=== PATIENT | female | born 1955 | race Two or more races ===

== ENCOUNTER 2019-05-15 18:32 | Emergency (ER) | payer BC, OTHER ==
[~2019-05-15] VITALS: Ht 160 cm; Wt 99.8 kg
[2019-05-15 19:22] LABS: Basophils # (auto) 0 uL; Basophils % (auto) 0.5 % (0.0-2.0); Eosinophils # (auto) 0 uL; Eosinophils % (auto) 0.4 % (0.0-7.0); Hemoglobin 16.7 g/dL (12.2-16.2); Lymphocytes # (auto) 1.6 uL; Lymphocytes % (auto) 23.8 % (10.0-50.0); Mean Corpuscular Hemoglobin 32.4 pg (28.0-32.0); Mean Corpuscular Hgb Conc. 33.4 g/dL (32.0-36.0); Mean Corpuscular Volume 97.1 fL (80.0-100.0); Monocytes # (auto) 0.4 uL; Monocytes % (auto) 6.7 % (0.0-12.0); Neutrophils # (auto) 4.5 uL; Neutrophils % (auto) 68.6 % (37.0-80.0); Nucleated Red Blood Cells % 0.1 %; Platelet Count (auto) 231 10^3/uL (140-450); Red Blood Cells 5.15 10^6/uL (4.0-5.20); Red Cell Distribution Width 15.7 % (11.8-14.3); White Blood Cell 6.6 10^3/uL (4.4-10.8)
[2019-05-15 19:39] LABS: Albumin 3.8 g/dL (3.4-5.0); Anion Gap 5 (5-15); Blood Urea Nitrogen 21 mg/dL (7-18); Calcium 8.4 mg/dL (8.5-10.1); Carbon Dioxide 29 mmol/L (21-32); Chloride 109 mmol/L (98-107); Glucose 161 mg/dL (74-106); Potassium 4.4 mmol/L (3.5-5.1); Sodium 143 mmol/L (136-145)
[2019-05-15 19:45] LABS: Alanine Aminotransferase 36 U/L (13-56); Alkaline Phosphatase 100 U/L (45-117); Aspartate Aminotransferase 30 U/L (15-37); BUN/Creatinine Ratio 18.9; Bilirubin, Total 0.5 mg/dL (0.2-1.0); GFR African American 64 mL/min; GFR Non-African American 53 mL/min; Total Protein 7.1 g/dL (6.4-8.2)
[2019-05-15 22:54] LABS: Urine Bacteria NONE SEEN /hpf (None Seen); Urine Blood 1+ /uL (Negative); Urine Mucus FEW (None Seen); Urine Specific Gravity 1.028 (1.001-1.035); Urine WBC 13 /hpf (0 - 5)
[2019-05-16] MEDS ORDERED: IPRATROPIUM BROM 0.5 MG/2.5ML INH SOL NEB ONE (05:30)
[2019-05-16] MEDS ORDERED: ALBUTEROL SULF 2.5 MG/0.5ML(0.5%) NEB SOLN NEB ONE (05:30)
[2019-05-16] MEDS ORDERED: FUROSEMIDE 20 MG/2 ML VIAL IV ONE (05:45)
[2019-05-16 06:31] VITALS: BP 145/88
== END 2019-05-16 07:01 | disposition home or self-care (01) ==
LOC: ER 18:35
DX: J44.1 Chronic obstructive pulmonary disease with (acute) exacerbation (principal); H10.9 Unspecified conjunctivitis; R07.89 Other chest pain; I50.9 Heart failure, unspecified; E07.9 Disorder of thyroid, unspecified
CPT/HCPCS: 36415; 71046; 80053; 81001; 83880; 84484; 85025; 93005; 94640; 96374; 99284; J1940; J7611; J7644

== ENCOUNTER 2020-03-27 22:22 | Inpatient (IN) | payer BC, OTHER ==
[~2020-03-27] VITALS: Ht 154.9 cm; Wt 84.6 kg
[2020-03-27 23:49] LABS: Hematocrit 44.4 % (36.0-46.0); Hemoglobin 14.8 g/dL (12.2-16.2); Mean Corpuscular Hemoglobin 34.4 pg (28.0-32.0); Mean Corpuscular Hgb Conc. 33.4 g/dL (32.0-36.0); Platelet Count (auto) 70 10^3/uL (140-450); Red Blood Cells 4.31 10^6/uL (4.0-5.20); Red Cell Distribution Width 16.3 % (11.8-14.3)
[2020-03-27 23:55] LABS: Basophils % (manual) 0 (0.0-2.0); Blast Cells 0; Eosinophils % (manual) 0 (0-7); Promyelocytes % 0; Reactive Lymphocytes 0
[2020-03-28] VITALS (58 sets, daily range): BP systolic 62–112; BP diastolic 27–72
[2020-03-28] MEDS ORDERED: ONDANSETRON HCL 4 MG/2 ML VIAL IV ONE
[2020-03-28] MEDS ORDERED: MORPHINE SULFATE 4 MG/ML SYR/VIAL IV ONE
[2020-03-28 00:03] LABS: Albumin 2.2 g/dL (3.4-5.0); Anion Gap 14 (5-15); Blood Urea Nitrogen 44 mg/dL (7-18); Calcium 8.8 mg/dL (8.5-10.1); Carbon Dioxide 18 mmol/L (21-32); Chloride 107 mmol/L (98-107); GFR African American 39 mL/min; GFR Non-African American 32 mL/min; Glucose 71 mg/dL (74-106); Sodium 139 mmol/L (136-145)
[2020-03-28 00:06] LABS: Potassium 2.9 mmol/L (3.5-5.1)
[2020-03-28 00:15] LABS: Alanine Aminotransferase 16 U/L (13-56); Alkaline Phosphatase 158 U/L (45-117); Aspartate Aminotransferase 22 U/L (15-37); Bilirubin, Total 2.6 mg/dL (0.2-1.0); Total Protein 5.9 g/dL (6.4-8.2)
[2020-03-28 00:30] LABS: INR 1.24 (0.9-1.15); Partial Thromboplastin Time 42.9 sec (23.0-31.2)
[2020-03-28 00:45] LABS: Band Neutrophils % (manual) 54; Lymphocytes % (manual) 7 (10.0-50.0); Metamyelocytes % 3; Monocytes % (manual) 2 (0-12); Myelocytes % 2
[2020-03-28] MEDS ORDERED: POTASSIUM CHL 20MEQ/100ML 100 ML IV ONE ×2 (00:45→06:45)
[2020-03-28 01:58] LABS: Lactic Acid w/Reflex 4.3 mmol/L (0.4-2.0)
[2020-03-28] MEDS ORDERED: HYDROmorphone HCL 2 MG/ML VL IV ONE (02:30)
[2020-03-28] MEDS ORDERED: PIPERACILLIN-TAZOB 3.375GM 100 ML IV ONE (03:00)
[2020-03-28] MEDS ORDERED: VANCOMYCIN 1GM/250ML 250 ML IV ONE (03:00)
[2020-03-28 06:06] LABS: Urine Bacteria MANY /hpf (None Seen); Urine Blood 2+ /uL (Negative); Urine Specific Gravity 1.025 (1.001-1.035); Urine WBC 14 /hpf (0 - 5)
[2020-03-28] MEDS ORDERED: ALBUMIN 25% 100 ML IV ONE (06:45)
[2020-03-28] MEDS ORDERED: MORPHINE SULF INJ 2 MG/ML SYRINGE 1ML IV PRN (06:45)
[2020-03-28] MEDS ORDERED: VANCOMYCIN PER PHARMACY 0 MG IV SCH ×2 (06:45→08:15)
[2020-03-28] MEDS ORDERED: SOD CHL 0.45% 1,000 ML IV ONE (06:45)
[2020-03-28] MEDS ORDERED: NITROGLYCERIN 0.4 MG SL TAB SL PRN (06:45)
[2020-03-28 07:56] LABS: Red Blood Cells 4.49 10^6/uL (4.0-5.20)
[2020-03-28 07:58] LABS: Hematocrit 46.5 % (36.0-46.0); Hemoglobin 15.2 g/dL (12.2-16.2); Mean Corpuscular Hemoglobin 33.8 pg (28.0-32.0); Mean Corpuscular Hgb Conc. 32.7 g/dL (32.0-36.0); Mean Corpuscular Volume 103.6 fL (80.0-100.0); Platelet Count (auto) 42 10^3/uL (140-450); Red Cell Distribution Width 16.4 % (11.8-14.3); White Blood Cell 4.5 10^3/uL (4.4-10.8)
[2020-03-28 08:12] LABS: Albumin 2.1 g/dL (3.4-5.0); Calcium 8.4 mg/dL (8.5-10.1); Potassium 3.2 mmol/L (3.5-5.1)
[2020-03-28 08:17] LABS: BUN/Creatinine Ratio 26.9; Bilirubin, Total 3.3 mg/dL (0.2-1.0); Total Protein 5.8 g/dL (6.4-8.2)
[2020-03-28 08:29] LABS: Basophils % (manual) 0 (0.0-2.0); Blast Cells 0; Eosinophils % (manual) 0 (0-7); Myelocytes % 0; Promyelocytes % 0
[2020-03-28] MEDS ORDERED: MIDAZOLAM HCL 5 MG/ML-1ML VIAL IV ONE (08:30)
[2020-03-28] MEDS ORDERED: MIDAZOLAM DRIP 50 mg/50mL 50 ML IV ONE (08:41)
[2020-03-28] MEDS: MIDAZOLAM DRIP 50 mg/50mL 50 ML IV SCH (08:50)
--- NOTE | 2020-03-28 08:53 | NUR ---
INTUBATION PT INTUBATED BY DR. GUNDERSON WITH ETT 7.5 AT 22CM LIP, SECURED WITH HOLISTER. POSITIVE COLOR CHANGE ON COLORMETRIC CO2 DETECTOR. BILATERAL BREATH SOUNDS CLEAR/DIM T/O. PLACED PT ON ESPRIT VENT V14 PLUGGED INTO RED OUTLET, ON SETTINGS: AC, RR 14, VT 450, PEEP +5, FIO2 40%. SUCTIONED FOR MODERATE THICK WRIGHT SECRETIONS, SPUTUM SAMPLE OBTAINED AND SENT TO LAB. ALARMS SET AND AUDIBLE. PT SEDATED, TOLERATING VENT WELL. RN AT BEDSIDE, AWARE OF PT'S BLOOD PRESSURE. ABG TO FOLLOW. WILL CONT TO MONITOR.
[2020-03-28 08:59] LABS: Band Neutrophils % (manual) 17; Lymphocytes % (manual) 5 (10.0-50.0); Metamyelocytes % 4; Monocytes % (manual) 4 (0-12); Reactive Lymphocytes 1
[2020-03-28] MEDS: NOREPINEPHRINE 8 MG/250ML KIT 250 ML IV SCH ×4 (09:00→22:14)
[2020-03-28] MEDS ORDERED: SODIUM CHLORIDE 0.9% 1,000 ML IV ONE ×2 (09:45)
--- NOTE | 2020-03-28 09:58 | NUR ---
Got a report from ER.
[2020-03-28] MEDS: FUROSEMIDE 20 MG/2 ML VIAL IV SCH ×2 (10:00→17:47)
[2020-03-28] MEDS: PHENYLEPHRINE IV 250 ML IV SCH ×6 (10:00→22:16)
[2020-03-28 10:15] LABS: INR 1.34 (0.9-1.15)
--- NOTE | 2020-03-28 10:30 | NUR ---
WOUND CARE NOTE: IN TO SEE PATIENT AT THIS TIME PER WOUND CARE CONSULT REQUEST. PATIENT RECENTLY ADMITTED TO [facility] WITH DIAGNOSIS OF SEPSIS, BLE STASIS ULCERS/BLISTERS. CURRENT ZEHRA SCORE IS 10. PATIENT IS INTUBATED, SEDATED. SHE COVID 19 TESTS PENDING AT THIS TIME, IN COVID ROOM. PATIENT WAS ADMITTED WITH MULTIPLE WOUNDS. ALL SKIN INTEGRITY ISSUES PHOTOGRAPHED AT THIS TIME FOR REFERENCE. SHE IS NTOED TO HAVE VENOUS STASIS ULCERS, OPEN BLISTERS, ERYTHEMA, ECCHYMOSIS NOTED TO BLE. RIGHT ABDOMEN TO KNEE IS PURPLE WITH ECCHYMOSIS. SKIN INTACT TO THIS AREA. THER IS 2 + PITTING EDEMA NOTED TO BLE. SACRUM IS VERY DARK BROWN/PURPLE. THIS COULD BE HYPERPIGMENTED SKIN VS. INTACT PURPLE DTI. APPLIED OPTIFOAM GENTLE SACRAL DRESSING TO THE SACRUM. ALL WOUND STATS CAN BE FOUND WITHIN WOUND ASSESSMENT INTERVENTION, LINKED TO THIS NOTE. THERAHONEY AND OPTIFOAM GENTLE DRESSINGS APPLIED TO ALL OPEN WOUNDS ON RIGHT LEG, RECOMMEND: FREQUENT TURN SCHEDULE Q 2 HOURS, PRN CONDITION PERMITS, WITH PRESSURE REDISTRIBUTION USING PILLOWS/WEDGES, ICU LOW AIRLOSS BED, BID/PRN APPLICATION WITH MOISTURE BARRIER CREAM, OPTIFOAM GENTLE SACRAL DRESSING, EOD/PRN DRESSINGS TO OPEN WOUNDS ON RIGHT LOWER EXTREMITY, DIETARY CONSULT, SKIN/WOUND CARE PLAN, CONTINUED MONITORING BY WOUND CARE TEAM. Addendum: 03/28/20 at 1455 by Vivi Call RN Amended: Links added.
--- NOTE | 2020-03-28 10:35 | NUR ---
Admit to ICU from ER on vent MONSE FRANKLIN admitted to ICU via gurney on residential monitor, intubated and being bagged by Respiratory Therapist. Patient transferred to bed, connected to mechanical ventilator by therapist, CADENM at bedside. Patient connected to ICU monitoring, weighed by bedscale, oriented to REZA LEGER RN primary RN, unit, ventilator and sedation. Wound care nurse at the bedside as well for skin assessment and pictures were taken by Wound care nurse. BP 80/50 mmHg with Max of Levophed and Dmitriy at 40 mcg/min, on Versed for sedation.
--- NOTE | 2020-03-28 10:35 | NUR ---
RT Transport Note: Patient transported to ICU 103 with RN. Patient transported on cardiac rehabilitation specialist with alarms set and audible, ambu-bag/mask connected to O2 tank. Patient placed back on ventilator with previous settings. Transport completed without incident.
[2020-03-28 10:44] LABS: Protein, Urine 220.2 mg/dL (0.0-11.9)
--- NOTE | 2020-03-28 11:01 | NUR ---
Received a call from Dr. Tracy regarding new consult, MD will see patient tomorrow.
[2020-03-28] MEDS ORDERED: VASOPRESSIN 50 UNITS in D5W 5% 247.5 ML IV SCH ×2 (11:45→12:00)
[2020-03-28] MEDS ORDERED: SODIUM CHLORIDE 0.9% 2,000 ML IV ONE (11:45)
[2020-03-28] MEDS: EPINEPHrine HCL 250 ML IV SCH (11:45)
[2020-03-28] MEDS ORDERED: VASOPRESSIN 20 UNIT/ML ONE (11:47)
--- NOTE | 2020-03-28 12:00 | NUR ---
Dr. Mir at the bedside.
[2020-03-28] MEDS: VASOPRESSIN 50 UNITS in D5W 5% 247.5 ML IV SCH (12:06)
--- NOTE | 2020-03-28 13:04 | NUR ---
Received a call from Dr. Kemi MD spoke to her regarding her condition, her will thinking about code status and will call us to let us know. Reported ABG to Dr. Mcmullen, received order for NaHO3 50 mEq iv push for 1 dose. Will carry out.
[2020-03-28] MEDS ORDERED: SODIUM BICARBONATE 8.4 % INJ 50ML VIAL IV ONE ×2 (13:15→17:15)
[2020-03-28] MEDS: PIPERACILLIN-TAZOB 2.25GM 50 ML IV SCH ×2 (13:21→22:16)
--- NOTE | 2020-03-28 13:54 | NUR ---
Received a call from her sister ([phone]), password given, updated patient's condition. Tried to call her as well. Left the message at this time.
--- NOTE | 2020-03-28 14:10 | NUR ---
Received a call from her , password provided, per her condition, her families were allow to see her in ICU today, her will sign the consent when he arrived.
--- NOTE | 2020-03-28 14:50 | NUR ---
Received a call from her mother. Password provided, updated condition.
--- NOTE | 2020-03-28 15:03 | NUR ---
Ultrasound atthe bedside, patient more awake, moving her both hands. Increased Versed at this time.
--- NOTE | 2020-03-28 15:45 | NUR ---
Called and informed Dr. Mcmullen regarding updating code status. made aware that her at the bedside and already signed for DNR.
--- NOTE | 2020-03-28 17:02 | NUR ---
Dr. Kang at the bedside, received new orders, MD discussed with Dr. Mcmullen on the phone. Will carry out.
[2020-03-28] MEDS ORDERED: SODIUM BICARBONATE 50ML VIAL 150 ML in SOD CHL 0.45% 1,000 ML IV SCH (17:15)
--- NOTE | 2020-03-28 19:00 | NUR ---
Opening shift note: Primary RN received report on patient. Patient currently intubated ETT 7.5/ 22CM @ LL, VENT settings: Assisted control. Bilateral lung sounds clear and diminished. Midline right upper arm. NGT to Right Nare clamped, placement verified. Rao catheter draining via gravity with yellow urine. Temp rectal probe in place. Safety precautions in place. Will continue to monitor. Patient on isolation for COVID-19 Rule Out.
--- NOTE | 2020-03-28 21:00 | NUR ---
SEDATION VACATION NOT APPROPRIATE FOR PATIENT AT THIS TIME, PATIENT IS CURRENTLY UNSTABLE. Addendum: 03/28/20 at 2242 by JEFRY CINTRON RN RN Amended: Links added.
--- NOTE | 2020-03-28 22:00 | NUR ---
Cooling measures: RN initiated cooling measures with removing blankets and placing ice packs on patient due to elevated temp of 100.4. RN will continue to monitor and assess.
--- NOTE | 2020-03-28 22:30 | NUR ---
Family: RN received call from family. Password verified. Family updated on patient condition and plan of care. All questions and concerned addressed.
--- NOTE | 2020-03-28 23:18 | NUR ---
Primary attending paged: RN paged primary attending and Dr. De Luna was covering. MD made aware of patient's code status but patient has begun to breath over the vent and appears to be in pain. New orders received and verified.
[2020-03-28] MEDS ORDERED: fentaNYL Drip 2500mCg/250mlNS 250 ML IV SCH (23:30)
[2020-03-29] VITALS (33 sets, daily range): BP systolic 78–104; BP diastolic 49–67
[2020-03-29] MEDS: PHENYLEPHRINE IV 250 ML IV SCH ×7 (00:11→12:31)
--- NOTE | 2020-03-29 01:00 | NUR ---
Family: Family member called. Patient's mother called and was updated on patient condition and POC. Mother was crying and states she wants patient to "go in peace, she has suffered so much already".
--- NOTE | 2020-03-29 01:11 | NUR ---
COVID RESULTS: RN received call from lab regarding patient's COVID 19 results being negative. experimental rocketsled mechanic made aware.
[2020-03-29] MEDS: VASOPRESSIN 50 UNITS in D5W 5% 247.5 ML IV SCH ×2 (01:14→10:51)
--- NOTE | 2020-03-29 01:44 | NUR ---
Cooling blanket: RN initiated cooling blanket d/t elevated temp with first set of cooling measures ineffective. RN will continue to monitor and assess patient.
--- NOTE | 2020-03-29 01:45 | NUR ---
Temp: Oral temp reads 99.0, rectal temp reads 102.0. RN continues to provide cooling measures with cooling blanket. RN will continue to monitor and assess patient's temp.
[2020-03-29] MEDS: MIDAZOLAM DRIP 50 mg/50mL 50 ML IV SCH ×3 (01:59→11:03)
[2020-03-29] MEDS: NOREPINEPHRINE 8 MG/250ML KIT 250 ML IV SCH ×2 (02:00→12:29)
--- NOTE | 2020-03-29 03:25 | NUR ---
Rectal temp: Patient's rectal temp began to fluctuate and read 98.7 throughout 102.1 consistently. RN attempted to reposition probe and unplug it and plug it back in. Probe continued with the same issue. RN took patient oral temp three times and received consecutive readings of 98.6 orally. RN assessed patient and noted patient to be cool to touch throughout. Cooling blanket turned off at this time. RN will continue to monitor and assess patient's temp.
--- NOTE | 2020-03-29 04:00 | NUR ---
Rectal probe: New rectal probe inserted for temp management. Temp now reading 101.2. Cooling measures restarted. RN will continue to monitor and asses.
[2020-03-29 04:11] LABS: Red Cell Distribution Width 16.9 % (11.8-14.3)
[2020-03-29 04:13] LABS: Hematocrit 41.9 % (36.0-46.0); Mean Corpuscular Hemoglobin 34.4 pg (28.0-32.0); Mean Corpuscular Hgb Conc. 33.3 g/dL (32.0-36.0); Mean Corpuscular Volume 103.3 fL (80.0-100.0); Red Blood Cells 4.05 10^6/uL (4.0-5.20)
[2020-03-29 04:32] LABS: Albumin 1.9 g/dL (3.4-5.0); Potassium 3.8 mmol/L (3.5-5.1); Uric Acid 5.6 mg/dL (2.6-6.0)
[2020-03-29 04:35] LABS: BUN/Creatinine Ratio 23.8; Bilirubin, Total 3.9 mg/dL (0.2-1.0); Phosphorus 5.2 mg/dL (2.5-4.90); Total Protein 5.1 g/dL (6.4-8.2)
[2020-03-29] MEDS: EPINEPHrine HCL 250 ML IV SCH ×2 (04:50→12:57)
[2020-03-29 04:55] LABS: Platelet Count (auto) 15 10^3/uL (140-450)
[2020-03-29 04:56] LABS: Blast Cells 0; Eosinophils % (manual) 0 (0-7); Myelocytes % 0; Promyelocytes % 0; Reactive Lymphocytes 0
[2020-03-29 05:23] LABS: Monocytes % (manual) 3 (0-12)
[2020-03-29 05:24] LABS: Band Neutrophils % (manual) 44; Lymphocytes % (manual) 7 (10.0-50.0); Metamyelocytes % 3
[2020-03-29] MEDS: PIPERACILLIN-TAZOB 2.25GM 50 ML IV SCH ×2 (05:32→14:00)
[2020-03-29] MEDS: FUROSEMIDE 20 MG/2 ML VIAL IV SCH (05:33)
[2020-03-29 05:38] LABS: Basophils % (manual) 0 (0.0-2.0)
--- NOTE | 2020-03-29 05:44 | NUR ---
Cooling measures stopped: Patient now noted with a temp of 98.6. Cooling measures stopped.
--- NOTE | 2020-03-29 05:47 | NUR ---
Primary attending paged: RN paged primary attending and Dr. De Luna was covering. made aware of patient's critical labs. No new orders obtained at this time.
--- NOTE | 2020-03-29 06:39 | NUR ---
Family: RN attempted to call family with an update on patient status but no answer.
--- NOTE | 2020-03-29 06:40 | NUR ---
Family: Family answered phone call. RN spoke with sister "Monica" who was present with other family members and family was made aware of patients current condition and situation. Family wishes for no more further medications to be added to patient's current medication regimen d/t patient already being a DNR and family wishes for patient to pass peacefully.
--- NOTE | 2020-03-29 07:05 | NUR ---
Assumed care of pt., report received per PENNIE Acevedo. pt. noted in hypotensive SPB 80's /c 4 vasopressors infusing, noted grave prognosis, family is aware of pt condition, noted vented and tolerating, will cont.to monitor for any changes, assessment ongoing.
--- NOTE | 2020-03-29 07:40 | NUR ---
Contacted Dr. Mcmullen to clarify pt. plan of care, no orders to terminally wean at this time, will cont. current plan of care until new orders received, will cont.to monitor pt for any changes, assessment ongoing.
[2020-03-29] MEDS ORDERED: SODIUM BICARBONATE 8.4 % INJ 50ML VIAL IV ONE (10:15)
--- NOTE | 2020-03-29 10:59 | NUR ---
Nutrition Assessment/consult Notes please see attached link for complete assessment [employer] needs ABW 65 [id number] kcals (20-23 kcal/kgABW), Est Protein needs: 52-65 gms/day (0.8-1.0 gm/kgABW r/t elev RFT wounds hypoalb). Will continue to monitor and reassess prn. Addendum: 03/29/20 at [address] Amended: Links added.
--- NOTE | 2020-03-29 12:00 | NUR ---
Steven present and is aware of pt. condition and is agreeable /c other family to terminally wean pt. off ventilator and off all supporting medications to keep pt. blood pressure as close to norm as possible. All question asked were answered, pt signed off on orders to withdrawal care, sister at pt. side now, will cont.to monitor for changes, assessment ongoing.
[2020-03-29] MEDS ORDERED: SODIUM BICARBONATE 50ML VIAL 150 ML in D5W 5% 1,000 ML IV SCH (12:15)
[2020-03-29] MEDS ORDERED: MORPHINE SULFATE 4 MG/ML SYR/VIAL IV PRN (12:30)
[2020-03-29] MEDS ORDERED: LORazepam 2MG/ML-1ML VIAL IV PRN (12:30)
--- NOTE | 2020-03-29 13:10 | NUR ---
TERMINAL WEAN ORDER RECEIVED FOR TERMINAL WEAN PER DR. REDMOND. TERMINALLY EXTUBATED PT WITH PENNIE JOYCE AND PT'S SISTER AT BEDSIDE.
--- NOTE | 2020-03-29 13:45 | NUR ---
Dr. Mcmullen notified of pt. expiring at 1340, no new orders received, family ay bedside, will cont. to support family in all matters.
--- NOTE | 2020-03-29 13:50 | NUR ---
Steven made aware of pt. passing, pt. to come to hospital for pt. belonging and to sign off on Record of /Authorization to release remains with in 2 hours
--- NOTE | 2020-03-29 14:30 | NUR ---
[facility] called and notified of pt.passing, pt. remains deferred from [facility] due to underlying conditions, Ref. # [id number]
--- NOTE | 2020-03-29 14:40 | NUR ---
[facility] office notified and as of 1440, as of 1600 director appointment has released pt. remains, see Record of /Authorization for Release of remains for further information.
--- NOTE | 2020-04-01 11:05 | NUR ---
CLAUDIA JANE, SISTER OF DECEDENT, CALLED ([phone]) SHE HAS MADE ARRANGEMENTS WITH [employer] I THEN SPOKE TO BRIDGETTE AT [employer]. EXECUTIVE COMMUNICATIONS MANAGER WILL BE WITHIN 2 HRS.
--- NOTE | 2020-04-01 13:15 | NUR ---
[employer] HERE TO FUEL OPERATOR DECEDENT
== END 2020-03-29 13:40 | disposition expired | DRG 871 ==
LOC: EDBD 22:22 → ER 22:25 → OBSVTOIN 22:26 → INTOOBSV 22:26 → OVERFLOW 22:26 → ICU WEST 03-28 10:36
PROVIDERS: ADMIT Internal Medicine; ATTEND Internal Medicine
PROC: 0BH17EZ Insertion of Endotracheal Airway into Trachea, Via Natural or Artificial Opening (ICD-10-PCS; principal; 2020-03-27)
PROC: 5A1945Z Respiratory Ventilation, 24-96 Consecutive Hours (ICD-10-PCS; 2020-03-27)
DX: A41.9 Sepsis, unspecified organism (principal); R65.21 Severe sepsis with septic shock; J96.00 Acute respiratory failure, unspecified whether with hypoxia or hypercapnia; I50.23 Acute on chronic systolic (congestive) heart failure; N17.9 Acute kidney failure, unspecified; L03.115 Cellulitis of right lower limb; L03.116 Cellulitis of left lower limb; M86.9 Osteomyelitis, unspecified; C79.9 Secondary malignant neoplasm of unspecified site; I13.0 Hypertensive heart and chronic kidney disease with heart failure and stage 1 through stage 4 chronic kidney disease, or unspecified chronic kidney disease; Z20.828 Contact with and (suspected) exposure to other viral communicable diseases; J45.909 Unspecified asthma, uncomplicated; E87.6 Hypokalemia; N18.9 Chronic kidney disease, unspecified; J44.9 Chronic obstructive pulmonary disease, unspecified; D69.6 Thrombocytopenia, unspecified; Z66 Do not resuscitate; Z85.830 Personal history of malignant neoplasm of bone; Z79.899 Other long term (current) drug therapy; Z79.01 Long term (current) use of anticoagulants
CPT/HCPCS: 31500; 36415; 36600; 71045; 73700; 74176; 80053; 80202; 80320; 81001; 82570; 82805; 83605; 83880; 83935; 84100; 84156; 84300; 84443; 84550; 85007; 85027; 85610; 85730; 87040; 87070; 87077; 87081; 87086; 87088; 87186; 87205; 87426; 93005; 93306; 93970; 94002; 94003; 96361; 96365; 96366; 96368; 96375; 96376; G0378; J0171; J2250; J2405; J2543; J3480; J7060; P9047